=== PATIENT | male | born 1990 | race Hispanic/Latino ===

== ENCOUNTER 2018-04-30 19:27 | Emergency (ER) | payer OTHER ==
[2018-04-30] MEDS ORDERED: ACTIDOSE-AQUA PO ONE (19:43)
[2018-04-30] MEDS ORDERED: NACL 0.9% 1000 ML 1,000 ML IV ONE (20:03)
[2018-04-30] MEDS ORDERED: ATIVAN IV ONE (20:03)
[2018-04-30] MEDS ORDERED: NACL 0.9% 1000 ML 2,000 ML IV ONE (20:09)
--- NOTE | 2018-04-30 20:09 | Emergency Department Report ---
HPI - General Chief Complaint: Medical Clearance Time Seen by Provider: 04/30/18 19:44 - HPI HPI: The patient is a 28-year-old male who presents for evaluation of potential overdose. 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 The patient denies fever, neck pain, parasthesias, dyspnea, cough, hemoptysis, palpitations, dizziness, syncope, unilateral leg swelling, calf muscle pain. Patient also denies cocaine or other stimulant use, history of DVT or PE, recent immobilization, or history of cancer. ED Past Medical Hx - Past Medical History Previous Medical History?: No - Surgical History Past Surgical History?: No - Social History Smoking Status: Current Every Day Smoker Substance Use Type: Heroin, Methamphetamines ED Review of Systems ROS: Stated complaint: MEDICAL CLEARANCE Other details as noted in HPI Constitutional: denies: fever ENT: denies: throat or neck pain Respiratory: denies: cough, shortness of breath Cardiovascular: denies: chest pain Endocrine: denies unexplained weight loss or gain Gastrointestinal: denies: abdominal pain, nausea Genitourinary: denies: dysuria Musculoskeletal: denies: leg swelling Skin: denies: rash Neurological: denies: headache Hematological/Lymphatic: denies: easy bleeding or easy bruising Psych: reports visual hallucinations denies sadness or hopelessness Physical Exam - Physical Exam Vital Signs: Vital Signs 04/30/18 19:33 Temperature 97.5 F L Pulse Rate 105 H Blood Pressure 165/101 O2 Sat by Pulse 98 Oximetry Physical Exam: General: well-nourished, well-developed, no acute distress Head: Normocephalic, atraumatic Eyes: normal sclera ENT: Mucous membranes are pale and dry Neck: trachea midline, neck supple, No neck stiffness, no cervical adenopathy Respiratory: Breath sounds equal bilaterally, no wheezing, rales, or rhonchi Cardio: S1 and S2 present, no murmurs, rubs, gallops, capillary refill is delayed Abdomen: Normoactive bowel sounds, soft abdomen, no rigidity, no guarding or rebound tenderness Chest WALL/Back: No tenderness to palpation of the chest wall, no CVA tenderness with percussion Musc: No pitting edema Skin: No rash Neuro: no facial drooping, normal speech Psych: Normal affect ED Course Vital Signs 04/30/18 19:33 Temperature 97.5 F L Pulse Rate 105 H Blood Pressure 165/101 O2 Sat by Pulse 98 Oximetry ED Medical Decision Making - Lab Data Result diagrams: 04/30/18 20:02 04/30/18 20:02 - Medical Decision Making The patient was seen and examined by myself. The patient is placed on a monitor technician and continuous pulse ox. On initial evaluation, the patient was found to be in no distress. Evaluation orders are placed. The patient is given charcoal. EKG is negative for arrhythmia. IV access is established and the patient is given 1 L normal saline fluid bolus and IV ativan for txt of anxiousness. Lab results were non-concerning including WBC, hemoglobin, hematocrit, electrolytes, renal function, LFTs, and troponin level. The patient was reevaluated and reported that their symptoms were markedly improved. The patient is stable for discharge with outpatient follow-up. The patient is given follow-up and return instructions. The patient expressed understanding and agreed with the plan. The patient is discharged in stable condition. Critical care attestation.: If time is entered above; I have spent that time in minutes in the direct care of this critically ill patient, excluding procedure time. ED Disposition Clinical Impression: Dehydration, Methamphetamine intoxication, Acute bilateral low back pain without sciatica, Pain in right lower leg Disposition: DC-01 TO HOME OR SELFCARE Is pt being admited?: No Does the pt Need Aspirin: No Condition: Stable Instructions: Arthralgia (ED), Back Pain (ED) Referrals: PRIMARY CARE, [Primary Care Provider] - 3-5 Days Time of Disposition: 21:20
[2018-04-30 20:30] LABS: Basophils # (Auto) 0.1 K/mm3 (0.0-0.1); Eosinophils # (Auto) 0.1 K/mm3 (0.0-0.4); Eosinophils % (Auto) 2.1 % (0.0-4.3); Hematocrit 42.6 % (35.5-45.6); Lymphocytes % (Auto) 14.7 % (13.4-35.0); Mean Corpuscular HGB Conc 35 % (32-34); Mean Corpuscular Hemoglobin 31 pg (28-32); Mean Corpuscular Volume 89 fl (84-94); Monocytes # (Auto) 0.6 K/mm3 (0.0-0.8); Monocytes % (Auto) 8.6 % (0.0-7.3); Platelet Count 249 K/mm3 (140-440); Red Blood Count 4.78 M/mm3 (3.65-5.03); Red Cell Distribution Width 13.6 % (13.2-15.2)
[2018-04-30 20:41] LABS: BUN/Creatinine Ratio 9; Blood Urea Nitrogen 7 mg/dL (9-20); Calcium 9.3 mg/dL (8.4-10.2); Hemolysis Index 7
[2018-04-30] MEDS ORDERED: BOOSTRIX IM ONE (21:44)
[2018-04-30] MEDS ORDERED: ULTRAM PO ONE (21:55)
[2018-04-30 23:04] VITALS: BP 101/49
--- NOTE | 2018-04-30 23:08 | XRay Report ---
FINAL REPORT PROCEDURE: AP view right tibia and fibula TECHNIQUE: AP view of the right tibia and fibula were obtained. HISTORY: Pain COMPARISON: No prior studies are available for comparison. FINDINGS: Small well-defined oval sclerotic density seen in the distal tibial metaphysis medially consistent with a bone island. Tibia and fibula otherwise are unremarkable. No fractures are seen. No abnormal periosteal reaction seen. IMPRESSION: Bone islands suspected distal tibial metaphysis as described. No other abnormality is seen.
--- NOTE | 2018-04-30 23:10 | XRay Report ---
FINAL REPORT PROCEDURE: AP and lateral lumbar sacral spine series TECHNIQUE: AP view of the lumbar sacral spine was obtained as well as lateral view. HISTORY: low back pain COMPARISON: No prior studies are available for comparison. FINDINGS: No fracture or subluxation is seen. Disc spaces are well maintained. Posterior elements appear intact. SI joints are unremarkable. IMPRESSION: Negative exam
== END 2018-05-01 | disposition home or self-care (01) ==
LOC: ED 19:27
DX: T43.621A Poisoning by amphetamines, accidental (unintentional), initial encounter (principal); R44.1 Visual hallucinations; E86.0 Dehydration; M54.5 Low back pain; M79.661 Pain in right lower leg; F17.200 Nicotine dependence, unspecified, uncomplicated; F11.10 Opioid abuse, uncomplicated; Y92.89 Other specified places as the place of occurrence of the external cause
CPT/HCPCS: 36415; 72100; 73590; 80048; 82550; 84484; 85025; 93005; 93010; 96360; 96361; 99285; G0480; J7030; 80320; 90715